=== PATIENT | female | born 1970 | race Caucasian/White ===

== ENCOUNTER 2018-12-29 16:56 | Outpatient (REF) | payer OTHER, SELFPAY ==
[2018-12-29 19:09] LABS: HCT 43.8 % (36.0-46.0); HGB 14.8 g/dL (12.0-15.5); Mean Corp. HGB Concentration 33.8 g/dL (32.0-36.0); Mean Corpuscular Hemoglobin 30.1 pg (27.0-33.0); Mean Corpuscular Volume 89.2 fL (80-95); Mean Platelet Volume 9.6 fL (8.0-11.0); Platelet Count 333 x1000/uL (130-400); RBC 4.91 m/cumm (4.00-5.20)
[2018-12-29 19:43] LABS: Glucose 98 mg/dL (70-100); TSH 2.48 uIU/mL (0.358-3.74)
[2018-12-29 20:03] LABS: FREE T4 0.93 ng/dL (0.76-1.46)
== END 2018-12-29 17:16 ==
LOC: NCHCN 16:56
PROVIDERS: PCP Physician Assistant; Visit Provider Internal Medicine
DX: R53.83 Other fatigue (principal); Z86.69 Personal history of other diseases of the nervous system and sense organs
CPT/HCPCS: 82947; 85027; 84439; 84443

== ENCOUNTER 2024-09-16 12:18 | Outpatient (REF) | payer OTHER, SELFPAY ==
[2024-09-16 20:39] LABS: ALT 21 U/L (14-59); AST 15 U/L (15-37); Alkaline Phosphatase 76 U/L (46-116); Anion Gap 4.5 mmol/L (3-11); BUN 14 mg/dL (7-18); CO2 32.5 mmol/L (21.0-32.0); CREATININE 0.8 mg/dL (0.55-1.02); Calcium 9.7 mg/dL (8.5-10.1); Calculated LDL 141 mg/dL (<100); Chloride 106 mmol/L (98-107); Cholesterol 232 mg/dL (<200); Glucose 98 mg/dL (74-106); HDL Cholesterol 84 mg/dL (40-60); Potassium 4.5 mmol/L (3.5-5.1); Sodium 143 mmol/L (136-145); Total Protein 7.9 g/dL (6.4-8.2); Triglyceride 39 mg/dL (<150)
== END 2024-09-16 12:19 | disposition home or self-care (01) ==
LOC: NCHCN 12:18
PROVIDERS: PCP Physician Assistant; Visit Provider Nurse Practitioner Family
DX: E78.5 Hyperlipidemia, unspecified (principal)
CPT/HCPCS: 80053; 80061